=== PATIENT | male | born 1945 | race Caucasian/White ===

== ENCOUNTER 2019-10-28 07:31 | Outpatient (CLI) | payer MEDICARE, SELFPAY ==
--- NOTE | 2019-10-28 | CT_ITS ---
WS: [id number] CTA OF THE CHEST WITH PULMONARY EMBOLISM PROTOCOL TECHNIQUE: High-resolution contrast enhanced CTA of the chest with coronal and sagittal reformatted i mages with pulmonary embolism protocol. MIP images are also reviewed. CLINICAL INFORMATION: ELEVATED D-DIMER/ CHEST PAIN/ SOB COMPARISON: None. DLP: 822.[address] scans at [facility] use at least one of these dose optimization techniques: automat ed exposure control; mA and/or kV adjustment per patient size (includes targeted exams where dose is matched to clinical indication); or iterative reconstruction. FINDINGS: Proximal main pulmonary arteries are normal. Normal segmental and subsegmental pulmonary arteries. No filling defects. No evidence of pulmonary embolus. Mild aortic calcification. Coronary calcification . No mediastinal or hilar lymphadenopathy. A few calcified hilar and subcarinal lymph nodes. Lungs are well aerated. No acute pulmonary infiltrates. No focal pneumonia. No consolidation or pleur al fluid. No axillary lymphadenopathy. Diffuse fatty infiltration of the liver. Adrenal glands are no rmal. Normal GE junction. No other significant findings. CT/CT angio chest PE protcl [id number] IMPRESSION: 1. No evidence of pulmonary embolus. 2. Lungs are well aerated. No acute pulmonary infiltrates. No consolidation or pleural fluid. 3. No mediastinal or hilar lymphadenopathy. 4. Diffuse fatty infiltration of the liver.
[2019-10-28 08:44] LABS: Blood Urea Nitrogen 19 mg/dL (8-23)
[2019-10-28] MEDS: iohexol 350 mg/mL 100 mL Btl IV (08:59)
== END 2019-10-28 07:32 | disposition home or self-care (01) ==
PROVIDERS: Family Provider Family Medicine; PCP Family Medicine; Visit Provider Family Medicine
DX: R07.9 Chest pain, unspecified (principal); I10 Essential (primary) hypertension; Z86.79 Personal history of other diseases of the circulatory system; R06.02 Shortness of breath; R94.31 Abnormal electrocardiogram [ECG] [EKG]; R79.89 Other specified abnormal findings of blood chemistry; K76.0 Fatty (change of) liver, not elsewhere classified
CPT/HCPCS: 71275; 82565; 84520; Q9967

== ENCOUNTER 2019-11-20 11:07 | Outpatient (CLI) | payer MEDICARE, SELFPAY ==
--- NOTE | 2019-11-20 11:00 | USCV_ITS ---
Barbie Eddy Age: 74 Gender: M : 1945 Exam Date: 11/20/2019 11:23 Ordering Phys: Yves Guzman MD ([email or web address]) Technologist: Caity Gooden Exam Location: [facility] [place] Indication: Heart murmur BP: 141 / 79 HR: 83 Rhythm: Sinus Technical Quality: Fair MEASUREMENTS (Male / Female) Normal Values 2D ECHO LV Diastolic Diameter PLAX 3.4 cm 4.2 - 5.9 / 3.9 - 5.3 cm LV Systolic Diameter PLAX 2.0 cm LV Chamber Size 3.4 cm IVS Diastolic Thickness 2.1 cm 0.6 - 1.0 / 0.6 - 0.9 cm IVS Systolic Thickness 2.4 cm LVPW Diastolic Thickness 1.1 cm 0.6 - 1.0 / 0.6 - 0.9 cm LVPW Systolic Thickness 1.7 cm RV Chamber Size 1.7 cm LVOT Diameter 2.0 cm LV Ejection Fraction 2D Teich 70.5 % LV Ejection Fraction MOD 2C 64.3 % LV Ejection Fraction 2C AL 65.7 % LA Diameter 4.8 cm LA Width 2.7 cm LA Height 5.3 cm RA Width 2.2 cm RA Height 5.0 cm Aorta at Sinotubular Diameter 1.9 cm M-MODE LV Diastolic Diameter MM 5.5 cm 4.2 - 5.9 / 3.9 - 5.3 cm LV Systolic Diameter MM 3.7 cm LV Ejection Fraction MM Teich 61.5 % IVS Diastolic Thickness MM 0.9 cm 0.6 - 1.0 / 0.6 - 0.9 cm IVS Systolic Thickness MM 1.5 cm LVPW Diastolic Thickness MM 1.5 cm 0.6 - 1.0 / 0.6 - 0.9 cm LVPW Systolic Thickness MM 1.8 cm Aortic Annulus Diameter 3.1 cm LA Ao Ratio MM 1.6 MV E Point Septal Separation 0.4 cm DOPPLER AV Peak Velocity 212.0 cm/s LVOT Peak Velocity 91.0 cm/s AV Area Cont Eq vti 1.3 cm squared AV Area Cont Eq pk 1.4 cm squared MV Area PHT 3.9 cm squared Mitral E to A Ratio 0.7 MV E' Velocity 9.0 cm/s Mitral E to MV E' Ratio 8.4 Mitral E to LV E' Lateral Ratio 7.2 Mitral E to LV E' Septal Ratio 10.1 TV Peak E Velocity 47.0 cm/s Right Atrial Pressure 3.0 mmHg PV Peak Velocity 86.0 cm/s RV Acceleration Time 0.1 s RV Ejection Time 0.2 s RV AcT/ET 0.3 FINDINGS Left Ventricle Normal left ventricular size and systolic function, EF 66 %. Mild left ventricular hypertrophy. No regional wall motion abnormalities. Grade I/IV diastolic dysfunction (abnormal relaxation filling pattern), normal to mildly elevated filling pressures. Right Ventricle The right ventricle is normal in size and function. Right Atrium The right atrium is normal in size. Left Atrium Mildly increased left atrial size. Mitral Valve Thickened mitral valve. Aortic Valve Moderate aortic valve calcification. Aortic valve sclerosis. Tricuspid Valve No gross abnormalities noted Pulmonic Valve No gross abnormalities noted Pericardium Normal pericardium without effusion. Aorta Normal ascending aorta dimension. CONCLUSIONS Normal left ventricular size and systolic function, EF 66 %. Mild left ventricular hypertrophy. No regional wall motion abnormalities. Type I diastolic dysfunction. Mildly increased left atrial size. Moderate aortic valve calcification. Aortic valve sclerosis. Thickened mitral valve. There is no pericardial effusion. There are no intracardiac masses. No previous study is available for comparison. Dr Yves Guzman MD FAC (Electronically Signed) Final Date: 20 November 2019 21:03 S
== END 2019-11-20 11:08 | disposition home or self-care (01) ==
LOC: US 11:10
PROVIDERS: PCP Family Medicine; Visit Provider Internal Medicine Cardiovascular Disease
DX: R01.1 Cardiac murmur, unspecified (principal); I08.0 Rheumatic disorders of both mitral and aortic valves; I70.0 Atherosclerosis of aorta
CPT/HCPCS: 93306

== ENCOUNTER 2019-12-03 07:12 | Outpatient (CLI) | payer MEDICARE, SELFPAY ==
--- NOTE | 2019-12-03 07:28 | ECG_ITS ---
[facility] Test Date: 2019-12-03 Pat Name: Barbie Eddy Department: Room: Gender: Male [employer]: : 1945 Requested By: Yevs Guzman Order Number: [id number] Connie MD: Yves Guzman M.D. Interpretive Statements NAME OF STUDY: EXERCISE SESTAMIBI STRESS TEST INDICATION: Shortness of Breath PROCEDURE: The baseline electrocardiogram showed normal sinus rhythm with a first-degree AV block. Poor R wave progression. Possible old anteroseptal myocardial infarction. Some nonspecific T wave changes in the high lateral leads.. At the baseline, the patient's blood pressure was 184/95 mm Hg with a heart rate of 89. The patient exercised for 5 minutes and 44 seconds on a standard [place] protocol. Patient attained a maximum heart rate of 129 beats per minute( 87 % of the maximum predicted heart rate) with a blood pressure at the peak exercise of 237/88 mm Hg. The EKG at the peak exercise revealed no significant changes. Patient did not have any chest pain or any significant arrhythmis with the exercise Sestamibi was injected 1 minute prior to the peak exercise During the recovery phase, there were no new changes. Blood pressure at the end of the recovery phase was 201/80 mm Hg with a heart rate of 101 per minute. CONCLUSION: 1. No significant EKG changes with the [treadmill exercise 2. No exercise-induced chest pain or cardiac arrhythmia. Hypertensive response to exercise 3. Slightly impaired exercise tolerance, attained a maximum of 7.0 METs 4. Sestamibi/Sestamibi perfusion results pending; see separate report. Electronically Signed On 12-06-2019 12:12:49 CDT by Yves Guzman M.D. [id number]
--- NOTE | 2019-12-03 07:28 | NMCV_ITS ---
NM hanh perf SPECT r/s* [id number] Barbie Eddy Age: 74 Gender: M : 1945 Exam Date: 12/03/2019 08:41 Ordering Phys: Yves Guzman MD ([email or web address]) Technologist: GHAZALA Elizabeth Exam Location: [facility] Indications: SHORTNESS OF BREATH, CHEST PAIN STRESS TEST Please see separate stress test report in [facility] for full findings IMAGE PROTOCOL Rest/Stress 1 Exercise Day Radiopharmaceutical Dose (mCi) Administration Site Administered by Rest: Tc-99m 10.7 IV GHAZALA Elizabeth Sestamibi Stress:Tc-99m 32.2 IV GHAZALA Gonzalez Sestamibi Rest: 03-Dec-2019 60 Discovery 630 Stress: 03-Dec-2019 30 Discovery 630 Radiopharmaceutical was injected at 85 % maximum heart rate. Images obtained in supine and prone position. SPECT RESULTS Technical Quality: Excellent Raw Data Analysis: Normal Image Corrections: No attenuation or motion correction applied Summed Stress Score: 0 Summed Rest Score: 0 Summed Difference Score: 0 PERFUSION FINDINGS Small area of slightly decreases uptake was noted in the mid inferolateral region. No segment reversibility was noted in this area. FUNCTIONAL RESULTS (calculated via Gated SPECT) Stress Image LV EF (%): 65 Stress EDV (mL):92 TID: 1.02 Stress ESV (mL):32 FUNCTIONAL FINDINGS: Segmental wall motion analysis revealing no gross wall motion normalities. IMPRESSIONS 1. Myocardial perfusion imaging revealing a small area of slightly decreased persistent tracer uptake in the inferolateral region, suggestive of myocardial scarring versus attenuation artifact. 2. Normal LV ejection fraction of 65%. 3. LV wall motion analysis revealing no gross wall motion normalities. 4. Normal LV volume. No significant coronary ischemia, based on the above findings Dr Yves Guzman MD [facility] (Electronically Signed) Final Date: 03 December 2019 20:04 S
[2019-12-03 07:40] VITALS: BMI 30.5
[2019-12-03 10:14] VITALS: BP 186/82; PULSE 98
== END 2019-12-03 07:13 | disposition home or self-care (01) ==
LOC: CDL 07:13
PROVIDERS: PCP Family Medicine; Visit Provider Internal Medicine Cardiovascular Disease
DX: R06.02 Shortness of breath (principal); R07.89 Other chest pain
CPT/HCPCS: 78452; 93017; A9500

== ENCOUNTER → 2022-01-27 08:07 | Outpatient (BNVA) | payer MEDICARE, SELFPAY | PROVIDERS: PCP Family Medicine; Visit Provider Internal Medicine | DX: M25.9 Joint disorder, unspecified (principal); M54.50 Low back pain, unspecified; Z86.39 Personal history of other endocrine, nutritional and metabolic disease; Z11.59 Encounter for screening for other viral diseases; Z11.1 Encounter for screening for respiratory tuberculosis | CPT/HCPCS: 72040; 72072; 72100; 73120; 73502; 73560; 80053; 81003; 82550; 84100; 84443; 85025; 85651; 86140; 86160; 86162; 86200; 86235; 86255; 86376; 86431; 86480; 86704; 86803; 99214 ==

== ENCOUNTER → 2022-03-08 14:54 | Outpatient (BNVA) | payer MEDICARE, SELFPAY | PROVIDERS: PCP Family Medicine; Visit Provider Internal Medicine | DX: M25.9 Joint disorder, unspecified (principal); M54.50 Low back pain, unspecified; Z86.39 Personal history of other endocrine, nutritional and metabolic disease | CPT/HCPCS: 99214 ==